=== PATIENT | male | born 1985 | race Caucasian/White ===

== ENCOUNTER 2019-09-13 20:51 | Emergency (ER) | payer MEDICAID ==
[~2019-09-13] VITALS: Ht 165.1 cm; Wt 63.5 kg
--- NOTE | 2019-09-13 20:58 | NUR ---
PT TAKEN TO BED 9
[2019-09-13 21:00] VITALS: BP 140/83
--- NOTE | 2019-09-13 21:00 | NUR ---
PT STATES THAT HE HAD A SUDDEN ONSET CP 20 MINUTES AGO ACCOMPANIED BY SOB; SECONDARY TO THROAT AND SINUS PAIN. STATES THAT HE WENT TO THE DOCTOR THIS MORNING WHO PRESCRIBED A MEDICATION FOR A VIRAL INFECTION. NO PMH. NKA. EKG ORDERED. PLACED ON MONITOR. VSS. EKG NSR. WILL CONTINUE TO MONITOR.
--- NOTE | 2019-09-13 21:22 | NUR ---
Dr. Patel examining patient.
[2019-09-13] MEDS ORDERED: ALUMINUM HYD/MAG/SIMETHICONE 30 ML UDC PO ONE (21:30)
[2019-09-13] MEDS ORDERED: LIDOCAINE VISCOUS 2% 20 ML UDC PO ONE (21:30)
[2019-09-13] MEDS ORDERED: PANTOPRAZOLE 40 MG TABEC PO ONE (21:30)
[2019-09-13] MEDS ORDERED: DICYCLOMINE HCL LIQUID 10 MG/5 ML UDC PO ONE (21:30)
[2019-09-13 22:31] VITALS: BP 134/85
--- NOTE | 2019-09-13 22:31 | NUR ---
Patient discharged with v/s stable. Written and verbal after care instructions given and explained. Patient alert, oriented and verbalized understanding of instructions. Ambulatory with steady gait. All questions addressed prior to discharge. ID band removed. Patient advised to follow up with PMD. Rx of protonix given. Patient educated on indication of medication including possible reaction and side effects. Opportunity to ask questions provided and answered.
== END 2019-09-13 22:31 | disposition home or self-care (01) ==
LOC: MED 20:51
DX: K29.70 Gastritis, unspecified, without bleeding (principal)
CPT/HCPCS: 99284